=== PATIENT | female | born 1955 | race Caucasian/White ===

== ENCOUNTER 2025-04-22 15:29 | Emergency (ER) | payer MEDICARE, MEDICAID ==
[~2025-04-22] VITALS: Ht 170.2 cm; Wt 82.0 kg
[2025-04-22 15:40] VITALS: O2SAT 96
[2025-04-22] MEDS: ONDANSETRON HCL 4MG/2ML INJ IV ONE (16:24)
[2025-04-22] MEDS: MECLIZINE 25MG TABLET PO ONE (16:24)
[2025-04-22] MEDS: SODIUM CHLORIDE 0.9% 1,000 ML IV ONE (16:26)
[2025-04-22 17:04] LABS: BASOPHILS % 1.0 % (0.0-2.0); EOSINOPHILS % 3.2 % (0.0-5.0); HEMATOCRIT. 36.5 % (36.0-48.0); HEMOGLOBIN. 12.7 g/dL (12.0-16.0); LYMPHOCYTES % 34.4 % (20.0-50.0); MEAN PLATELET VOLUME 7.6 fl (7.4-10.4); MONOCYTES % 8.8 % (2.0-8.0); NEUTROPHILS % 52.6 % (40.0-76.0); PLATELET 229 x1000/uL (130-400); RED BLOOD CELL COUNT 4.19 mill/uL (4.2-5.4); RED CELL DISTRIBUTION WIDTH 12.8 % (11.6-14.6)
[2025-04-22 17:15] VITALS: BP 139/67; PULSE 87; RESP 16; TEMP 36.5; O2SAT 98
[2025-04-22 17:23] LABS: CREATININE 0.8 mg/dL (0.6-1.0); TROPONIN I HIGH SENSITIVITY 29 ng/L (3.0-34)
[2025-04-22 17:24] LABS: UREA NITROGEN BLOOD 15 mg/dL (9-23)
[2025-04-22 17:25] LABS: ASPARTATE AMINOTRANSFERASE 22 IU/L (<34)
[2025-04-22 17:26] LABS: BILIRUBIN DIRECT < 0.1 mg/dL (<=3.0); BILIRUBIN TOTAL 0.3 mg/dL (0.1-1.0); PROTEIN TOTAL 6.8 g/dL (6.0-8.3)
[2025-04-22] MEDS ORDERED: MECL-299 MT (17:43)
[2025-04-22] MEDS ORDERED: ONDA4TAB50 MT (17:43)
== END 2025-04-22 17:56 | disposition home or self-care (01) ==
LOC: EDBD 15:29 → ER 15:29 → CMPBEDREQ 18:51
DX: R42 Dizziness and giddiness (principal); J45.909 Unspecified asthma, uncomplicated; E03.9 Hypothyroidism, unspecified; Z88.1 Allergy status to other antibiotic agents; Z79.899 Other long term (current) drug therapy
CPT/HCPCS: 99283; 96374; 96361; 80076; 80048; 83690; 83735; 85025; 84484; 36415; J8597; J2405; J7030

== ENCOUNTER 2025-08-14 14:36 | Emergency (ER) | payer MEDICARE, MEDICAID ==
[~2025-08-14] VITALS: Ht 162.6 cm; Wt 75.0 kg
[~2025-08-14 14:36] MED LIST: MECL-299 MT; ONDA4TAB50 MT
[2025-08-14 14:44] VITALS: TEMP 36.8; O2SAT 98
[2025-08-14 15:33] LABS: BASOPHILS % 1.1 % (0.0-2.0); EOSINOPHILS % 4.0 % (0.0-5.0); HEMATOCRIT. 37.5 % (36.0-48.0); HEMOGLOBIN. 12.9 g/dL (12.0-16.0); LYMPHOCYTES % 38.3 % (20.0-50.0); MEAN PLATELET VOLUME 7.3 fl (7.4-10.4); MONOCYTES % 9.1 % (2.0-8.0); NEUTROPHILS % 47.5 % (40.0-76.0); PLATELET 293 x1000/uL (130-400); RED BLOOD CELL COUNT 4.32 mill/uL (4.2-5.4); RED CELL DISTRIBUTION WIDTH 12.9 % (11.6-14.6)
[2025-08-14 15:51] LABS: CREATININE 0.8 mg/dL (0.6-1.0); UREA NITROGEN BLOOD 11 mg/dL (9-23)
[2025-08-14 16:33] LABS: TROPONIN I HIGH SENSITIVITY 26 ng/L (3.0-34)
[2025-08-14 16:36] LABS: PROTEIN TOTAL 7.1 g/dL (6.0-8.3)
[2025-08-14 16:38] LABS: ASPARTATE AMINOTRANSFERASE 23 IU/L (<34); BILIRUBIN DIRECT < 0.1 mg/dL (<=3.0); BILIRUBIN TOTAL 0.3 mg/dL (0.1-1.0)
[2025-08-14 16:58] LABS: CLARITY URINE CLEAR (CLEAR); COLOR URINE YELLOW (YELLOW); GLUCOSE URINE NEGATIVE (NEGATIVE); KETONES URINE NEGATIVE (NEGATIVE); LEUKOCYTE ESTERASE URINE TRACE (NEGATIVE); NITRITE URINE NEGATIVE (NEGATIVE); OCCULT BLOOD URINE NEGATIVE (NEGATIVE); PH URINE 7.0 (4.5-8.0); PROTEIN URINE NEGATIVE (NEGATIVE); SPECIFIC GRAVITY URINE 1.006 (1.005-1.030); UROBILINOGEN URINE 0.2 E.U./dL (0.2-1.0)
[2025-08-14] MEDS ORDERED: SULF1TAB48 MT (17:08)
[2025-08-14] MEDS: SULFAMETHOXAZOLE/TRIMETHOPRIM 800/160MG TABLET PO ONE (17:15)
[2025-08-14 17:39] VITALS: BP 134/74; PULSE 54; RESP 18; O2SAT 100
[2025-08-14 19:01] LABS: BACTERIA URINE NONE SEEN; RBC URINE NONE SEEN /hpf (0-2); SQUAMOUS EPITHELIAL CELL URINE RARE /lpf (RARE/1+); WBC URINE 0-2 /hpf (0-2)
== END 2025-08-14 17:43 | disposition home or self-care (01) ==
LOC: ER 14:36
DX: N39.0 Urinary tract infection, site not specified (principal); J45.909 Unspecified asthma, uncomplicated; Z88.1 Allergy status to other antibiotic agents; Z91.040 Latex allergy status; Z79.899 Other long term (current) drug therapy
CPT/HCPCS: 36415; 71045; 74176; 80048; 80076; 81003; 84484; 85025; 85379; 93005; 99285